=== PATIENT | female | born 1990 | race Caucasian/White ===

== ENCOUNTER 2021-02-21 23:28 | Emergency (ER) | payer OTHER ==
[~2021-02-21 23:28] MED LIST: ALBU90OI INH; AMIT10 PO; AMOX500 PO; BENZ100A PO; CEPH500 PO; CODGUAEL PO; ENOX60I SC; HYDACE5 PO; IBUP600 PO; IBUP800 PO; NAPR550 PO; NIFE10 PO; Prednisone20 MG PO; RXNAPNA550 PO; WARF5 PO; YAZMIN
== END 2021-02-22 00:41 | disposition left against medical advice (07) ==
LOC: ER 23:28
DX: Z53.21 Procedure and treatment not carried out due to patient leaving prior to being seen by health care provider (principal)